=== PATIENT | female | born 1970 | race Caucasian/White ===

== ENCOUNTER 2018-04-12 18:13 | Outpatient (REF) | payer MEDICAID, SELFPAY ==
[2018-04-12 18:54] LABS: Anion Gap 9.9 mmol/L (3-11); BUN 15 mg/dL (7-18); CO2 25.1 mmol/L (21.0-32.0); CREATININE 0.84 mg/dL (0.55-1.02); Calcium 8.5 mg/dL (8.5-10.1); Chloride 101 mmol/L (98-107); Cholesterol 170 mg/dL (50-200); Glucose 219 mg/dL (70-100); HDL Cholesterol 49 mg/dL (40-60); LDL CHOLESTEROL 91 mg/dL (<100); Potassium 3.8 mmol/L (3.5-5.1); Sodium 136 mmol/L (136-145); Triglyceride 205 mg/dL (30-150)
[2018-04-12 18:56] LABS: COMMENT (LAB VIEW ONLY) 123.36 mg/dL; Microalb ug/mg Crea 9.9 ug/mg Cr
== END 2018-04-12 18:33 ==
LOC: LBN 18:13
PROVIDERS: PCP Internal Medicine; Referring Provider Internal Medicine; Visit Provider Internal Medicine
DX: E11.9 Type 2 diabetes mellitus without complications (principal)
CPT/HCPCS: 80048; 80061; 83721; 82043; 82570

== ENCOUNTER 2020-01-18 02:48 | Outpatient (CLI) | payer OTHER, SELFPAY ==
[2020-01-18 09:24] LABS: COMMENT (LAB VIEW ONLY) 240.62 mg/dL; Microalb ug/mg Crea 8.7 ug/mg Cr
[2020-01-18 09:27] LABS: Anion Gap 9.6 mmol/L (3-11); BUN 13 mg/dL (7-18); CO2 27.4 mmol/L (21.0-32.0); CREATININE 0.92 mg/dL (0.55-1.02); Calcium 9.5 mg/dL (8.5-10.1); Calculated LDL 115 mg/dL (<100); Chloride 102 mmol/L (98-107); Cholesterol 195 mg/dL (<200); Glucose 171 mg/dL (74-106); HDL Cholesterol 56 mg/dL (40-60); Potassium 5.1 mmol/L (3.5-5.1); Sodium 139 mmol/L (136-145); Triglyceride 122 mg/dL (<150)
== END 2020-01-18 03:08 ==
PROVIDERS: PCP Internal Medicine; Visit Provider Internal Medicine
DX: E11.9 Type 2 diabetes mellitus without complications (principal)
CPT/HCPCS: 36415; 80048; 80061; 82043; 82570

== ENCOUNTER 2023-01-04 01:51 | Outpatient (CLI) | payer OTHER, SELFPAY ==
--- NOTE | 2023-01-04 07:15 | DI.NM_ITS ---
APPROVED REPORT Exam: Pharmacologic Patient Location: Out-Patient Room/Bed: Stress Nurse: Effie Goldman RN Ordering Provider:RAFAEL ARNOLSKYLER, Contact Number: [phone] BMI: 27.86 Baseline Rhythm: Sinus Rhythm, LBBB Indications: CP on exertion Medical History Medical History: T2DM, Tachycardia, LBBB, HLD, Anxiety Cardiac Medications: Rosuvastatin, pantoprazole, metformin Allergies: NKA Cardiac Risk Factors: Family Hx, DM, HLD Previous Cardiac Procedures: None Pretest Chest Pain Characteristics: None Exercise History: Sedentary Physical Disabilities: None Lung Sounds: Clear to auscultation Heart Sounds: Regular Stress Test Details Test: Pharmacologic stress was paired with low level exercise. Nuclear Acquisition: Stress Tc-99m/Stress Tc-99m 1 day Rest Isotope: Tc-99m Sestamibi. Dose: 10 Date: 01/04/2023 Injection Time: 0910 Stress Isotope: Tc-99m Sestamibi. Dose: 31 Date: 01/04/2023 Injection Time: 1053 HR Resting HR Supine: 97 bpm Max Heart Rate (APMHR): 168.177660 bpm Resting HR Standin bpm Target HR (85% APMHR): 142.356391 bpm Max HR Achieved: 158 bpm % of APMHR: 94.05 Recovery HR: 118 bpm BP Resting BP Supine: 142/82 mmHg Resting BP Standin/72 mmHg Max BP: 138/78 mmHg Recovery BP: 138/78 mmHg ECG Resting ECG: Sinus Rhythm, LBBB Ectopy: None Stress ECG: Sinus Tachycardia, LBBB ST Change: No significant ST segment changes noted Arrhythmia: None Recovery ECG: LBBB, Sinus Tachycardia Recovery ST Change: No significant ST segment changes noted Recovery Arrhythmia: None Clinical Rate Pressure Product: [id number] Stress ECG Conclusion 1. Resting electrocardiogram showed a left bundle branch block 2. Patient underwent testing using a combination of low-level exercise and pharmacologic stress with regadenoson. 3. Peak heart rate achieved was 94% of predicted for age 4. The electrocardiographic portion of the test was nondiagnostic due to LBBB 5. See MPI report Stress Test Summary STAGE HR BP SpO2 Symptoms NOTES Supine 97 142/82 98 Standing 99 134/72 99 1 min post Lexiscan injection 141 128/62 98 SOB 3 min post Lexiscan injection 132 132/68 99 SOB/ Chest tightness 4/10 6 min post Lexiscan injection 118 138/78 98 SOb and chest tightness resolved Pharmacologic test was paired with low level exercise due to LBBB. Exercise at 1.2MPH 0% grade comple se for 2 minutes prior to injection and 1 minute post injection. Patient had SOB and chest tightness that resolved before end of test. MPI Conclusion Myocardial perfusion is abnormal. There is a moderate sized partially reversible anteroapical defect consistent with ischemia, possibly some degree of infarction EF 34% with anteroapical hypokinesis Radiologist Interpretation Radiologist agrees with Final Canoe Inspector's Interpretation. Radiologist Interpretation by: Fred Corrales MD Interpretation Date/Time: 01/05/2023 15:34:38
[2023-01-04] MEDS: Regadenoson 0.4 MG/5 ML SYR IVP (10:33)
== END 2023-01-04 02:11 ==
PROVIDERS: PCP Nurse Practitioner Family; Visit Provider Nurse Practitioner Family
DX: R07.9 Chest pain, unspecified (principal)
CPT/HCPCS: 78452; 93017; J2785

== ENCOUNTER 2023-01-07 16:49 | Outpatient (REF) | payer OTHER, SELFPAY ==
[2023-01-07 19:43] LABS: ALT 24 U/L (14-59); AST 18 U/L (15-37); Albumin 4.3 g/dL (3.4-5.0); Alkaline Phosphatase 50 U/L (46-116); Anion Gap 12.2 mmol/L (3-11); BUN 34 mg/dL (7-18); Bilirubin, Total 0.5 mg/dL (0.2-1.0); CO2 24.8 mmol/L (21.0-32.0); CREATININE 1.9 mg/dL (0.55-1.02); Calcium 9.2 mg/dL (8.5-10.1); Calculated LDL 41 mg/dL (<100); Chloride 103 mmol/L (98-107); Cholesterol 111 mg/dL (<200); Estimated GFR 31.38 (mL/min/1.73m2); Glucose 113 mg/dL (74-106); HDL Cholesterol 53 mg/dL (40-60); Potassium 4.5 mmol/L (3.5-5.1); Sodium 140 mmol/L (136-145); TSH (W/Ref FT4) 1.74 uIU/mL (0.36-3.74); Total Protein 7.7 g/dL (6.4-8.2); Triglyceride 85 mg/dL (<150)
== END 2023-01-07 16:50 | disposition home or self-care (01) ==
LOC: LBN 16:49
PROVIDERS: PCP Nurse Practitioner Family; Visit Provider Nurse Practitioner Family
DX: E11.9 Type 2 diabetes mellitus without complications (principal); E78.5 Hyperlipidemia, unspecified; F41.1 Generalized anxiety disorder
CPT/HCPCS: 80053; 80061; 84443

== ENCOUNTER 2023-01-13 14:19 | Outpatient (CLI) | payer OTHER, SELFPAY ==
--- NOTE | 2023-01-13 13:45 | DI.RAD_ITS ---
Exam(s) XR HAND RT COMPLETE EXAM: XR HAND RT COMPLETE CLINICAL HISTORY: pain. TECHNIQUE: 2D digital imaging was performed of the right hand. Three images were obtained. AP, late ral and oblique views were obtained. COMPARISON: No exams were available for comparison FINDINGS: BONES: No acute fracture is present. No bony destructive lesion is seen. JOINTS: No dislocation present. The joint spaces are well maintained. SOFT TISSUE: Normal. IMPRESSION: Unremarkable radiographs of the right hand. DATA REPOSITORY: RADIATION DOSE DELIVERED:
--- NOTE | 2023-01-13 13:45 | DI.RAD_ITS ---
Exam(s) XR HAND LT COMPLETE EXAM: XR HAND LT COMPLETE CLINICAL HISTORY: pain. TECHNIQUE: 2D digital imaging was performed of the left hand. Three views were obtained. AP, later al and oblique views were obtained. COMPARISON: No exams were available for comparison FINDINGS: BONES: No acute fracture is present. No bony destructive lesion is seen. JOINTS: No dislocation present. SOFT TISSUE: Normal. IMPRESSION: Unremarkable radiographs of the left hand. DATA REPOSITORY: RADIATION DOSE DELIVERED:
== END 2023-01-13 14:20 | disposition home or self-care (01) ==
LOC: DIORS 14:19
PROVIDERS: PCP Nurse Practitioner Family; Referring Provider Nurse Practitioner Family; Visit Provider Physician Assistant
DX: M79.641 Pain in right hand (principal); M79.642 Pain in left hand
CPT/HCPCS: 73130

== ENCOUNTER 2023-12-22 10:23 | Outpatient (REF) | payer OTHER, SELFPAY ==
[2023-12-22 12:43] LABS: Bilirubin Negative (Negative); Blood Negative (Negative); Clarity Cloudy (Clear); Glucose Negative (Negative); Ketones Trace mg/dL (Negative); Leukocyte Esterase Trace (Negative); Nitrite Negative (Negative); Specific Gravity >= 1.030 (1.005-1.025); Urobilinogen 0.2 mg/dL (Up to 0.2)
[2023-12-22 15:17] LABS: Bacteria Moderate HPF (Negative); C & S Indicated? Yes; Casts Negative LPF (Negative); Crystals Few Calcium Oxalate HPF (Negative); Epithelial Cells Few HPF (Negative); Mucus Trace (Negative); Other Cells Rare Renal (Negative); RBC 0-2 HPF (0-2)
== END 2023-12-22 10:24 | disposition home or self-care (01) ==
LOC: LBN 10:23
PROVIDERS: PCP Nurse Practitioner Family; Visit Provider Nurse Practitioner Family
DX: Z00.00 Encounter for general adult medical examination without abnormal findings (principal); B96.89 Other specified bacterial agents as the cause of diseases classified elsewhere
CPT/HCPCS: 81003; 81015; 82043; 82570; 87086

== ENCOUNTER → 2024-01-05 00:13 | Outpatient (CLI) | payer OTHER, SELFPAY ==
--- NOTE | 2024-01-05 07:00 | DI.MAMMO_ITS ---
Exam(s) MAMMO SCREENING EXAM: MAMMO SCREENING CLINICAL HISTORY: screening, Z12.39. TECHNIQUE: Bilateral full field digital CC and MLO mammographic images were obtained with 3D tomosyn thesis and utilizing computer aided detection (CAD). COMPARISON: Prior outside mammograms were reviewed. FINDINGS: There are no new spiculated masses. No new left breast findings. In the posterior aspect of the right breast on the CC view there is a small group of benign-appearing microcalcifications which appears stable. However, immediately posterior to this group is another n ew group of microcalcifications which require spot Mag view (2D). No obvious mass at this level. There is no significant architectural distortion nor skin thickening-retraction. IMPRESSION: 1. No radiographic evidence of malignancy in left breast. 2. Right breast microcalcification group located posteriorly. Spot Mag 2D view recommended BI-RADS Category 0 - Assessment Incomplete: Need additional imaging evaluation Breast Density - Category B - Scattered areas of fibroglandular density Breast density Category C or D implies that the patient has dense breast tissue. Dense breast tissue can make it harder to find cancer on a mammogram. Dense breast tissue is also associated with an incr eased risk of breast cancer. This information about the result of the mammogram report was provided to the patient to raise their awareness. Use this report when you speak with the patient about their risks for breast cancer, which includes their family history. At that time, you may recommend additional screening tests (Ultrasoun d or MRI) as these tests may add significant information. A negative radiographic report should not delay biopsy if a dominant or clinically suspicious mass is present. Up to ten percent of cancers are not identified on mammography. A negative report may reinforce clinical impression. Adenosis and dense breasts may obscure an underlying neoplasm. False positive reports average 6 to 10%. Patient will receive a letter notifying them of these results.
== END ==
PROVIDERS: PCP Nurse Practitioner Family; Visit Provider Nurse Practitioner Family
DX: Z12.31 Encounter for screening mammogram for malignant neoplasm of breast (principal); R92.8 Other abnormal and inconclusive findings on diagnostic imaging of breast
CPT/HCPCS: 77063; 77067

== ENCOUNTER → 2024-01-12 03:22 | Outpatient (CLI) | payer OTHER, SELFPAY ==
--- NOTE | 2024-01-12 | DI.MAMMO_ITS ---
Exam(s) MG MAMMO SCREEN CALL BACK UNI EXAM: MG MAMMO SCREEN CALL BACK UNI INDICATION: RT BREAST MICROCALCIFICATION GROUP LOCATED POSTERIOLY R92.8 ABNL MAMMO. COMPARISON: MG MG MAMMOGRAPHY BILATERAL SCREENING from 10/02/2013 MG MG MAMMOGRAPHY BILATERAL SCREENING from 08/22/2018 MG MG MAMMOGRAPHY BILATERAL SCREENING from 08/24/2019 MG MG MAMMOGRAPHY BILATERAL SCREENING from 08/22/2021 MG MG MAMMO SCREENING from 01/05/2024 TECHNIQUE: Spot magnification cc and MLO views were performed of the posterior upper outer quadrant of the right breast.. FINDINGS: A grouping of calcifications is again noted in the posterior upper outer quadrant. The calcification s appear unchanged from 2021 appear new when compared with 2019. no definite suspicious features. IMPRESSION: BI-RADS Cat 3 - 6 month - Probably Benign Finding: Recommend follow-up imaging in 6 months Breast Density - Category B - Scattered areas of fibroglandular density
--- NOTE | 2024-01-12 09:15 | DI.MRI_ITS ---
Exam(s) MR UPPER JOINT LT WO EXAM: MR UPPER JOINT LT WO CLINICAL HISTORY: left shoulder pain x 1 yr with limited ROM, CHRONIC PAIN, M25.512, G89.29. TECHNIQUE: Multiplanar multisequence MRI was performed. COMPARISON: Exam interpreted without benefit of comparison plain films. FINDINGS: BONES: There is no fracture or contusion pattern. JOINTS:The acromioclavicular joint shows minimal degenerative changes. The glenohumeral joint is nor mal. TENDONS: Supraspinatus: Thickening and intermediate signal in the anterior supraspinatus tendon, consistent wi th tendinosis. No visible focal tear. Infraspinatus: Unremarkable. Subscapularis: Unremarkable. Teres Minor: Unremarkable. Biceps and [place]: The abnormally edema in the proximal biceps tendon. Distal biceps tendon normally positioned in groove. MUSCLES: Unremarkable. GLENOID LABRUM: Unremarkable on this noncontrast examination. SOFT TISSUES: Unremarkable. OTHER: Subacromial and subdeltoid bursae shows no fluid. . IMPRESSION: Tendinosis of the proximal long head of biceps tendon as well as supraspinatus tendon. No focal tear is are visible. DATA REPOSITORY:
== END ==
PROVIDERS: PCP Nurse Practitioner Family; Visit Provider Nurse Practitioner Family
DX: M19.012 Primary osteoarthritis, left shoulder (principal); Z12.31 Encounter for screening mammogram for malignant neoplasm of breast; R92.8 Other abnormal and inconclusive findings on diagnostic imaging of breast
CPT/HCPCS: 77063; 77067; 73221

== ENCOUNTER 2024-01-12 09:58 | Outpatient (CLI) | payer OTHER, SELFPAY ==
[2024-01-12 10:23] LABS: Abs Immature Grans 0.02 10^3/uL (0.0-0.06); Absolute Basophil Count 0.08 10^3/uL (0.0-0.2); Absolute Eosinophil Count 0.54 10^3/uL (0.0-0.7); Absolute Lymphocyte Count 2.16 10^3/uL (1.2-3.4); Absolute Monocyte Count 0.53 10^3/uL (0.1-0.8); Absolute Neutrophil Count 4.02 10^3/uL (1.2-6.7); Basophils % 1.1 %; Eosinophils % 7.3 %; HCT 32.3 % (36.0-46.0); HGB 10.8 g/dL (11.2-15.7); Immature Grans % 0.3 %; Lymphocytes % 29.4 %; MCH 29.8 pg (27.0-33.0); MCHC 33.4 % (32.0-36.0); MCV 89 fL (80-95); MPV 11.2 fL (8.0-11.0); Monocytes % 7.2 %; Neutrophils % 54.7 %; Platelet Count 316 10^3/uL (130-400); RBC 3.63 10^6/uL (3.93-5.22); RDW 12.6 % (11.7-14.6); RDW-SD 41.1 fL; WBC 7.35 10^3/uL (4.4-10.8)
[2024-01-12 11:39] LABS: ALT 37 U/L (14-59); AST 18 U/L (15-37); Albumin 4.1 g/dL (3.4-5.0); Alkaline Phosphatase 36 U/L (46-116); Anion Gap 9.5 mmol/L (3-11); BUN 26 mg/dL (7-18); Bilirubin, Total 0.5 mg/dL (0.2-1.0); CO2 28.5 mmol/L (21.0-32.0); CREATININE 1.3 mg/dL (0.55-1.02); Calcium 9.7 mg/dL (8.5-10.1); Chloride 105 mmol/L (98-107); Estimated GFR 49.17 (mL/min/1.73m2); Glucose 117 mg/dL (74-106); Potassium 4.4 mmol/L (3.5-5.1); Sodium 143 mmol/L (136-145); TSH (W/Ref FT4) 1.67 uIU/mL (0.36-3.74); Total Protein 7.1 g/dL (6.4-8.2)
[2024-01-12 18:04] LABS: FSH 100.5 mIU/mL (See Note)
[2024-01-13 09:42] LABS: Lab Add On Test DONE
[2024-01-13 10:04] LABS: HIV-1/2 Ag & Ab Screen Negative (Negative)
[2024-01-13 10:32] LABS: Ferritin 68 ng/mL (8-252); Vitamin B12 1825 pg/mL (193-986)
[2024-01-13 23:57] LABS: Folate >24.0 ng/mL (See Note)
[2024-01-14 09:20] LABS: Hepatitis C Ab w Rflx HCV PCR Negative (Negative)
[2024-01-14 09:32] LABS: HBs Antibody, Quant <3.1 mIU/mL (See Note); Hep B Surface Ab Negative (See Note); Hepatitis B Core Antibody Negative (Negative); Hepatitis B Surface Antigen Negative (Negative)
== END 2024-01-12 09:59 | disposition home or self-care (01) ==
LOC: LBO 09:58
PROVIDERS: PCP Nurse Practitioner Family; Visit Provider Nurse Practitioner Family
DX: Z00.00 Encounter for general adult medical examination without abnormal findings (principal); D64.9 Anemia, unspecified
CPT/HCPCS: 36415; 80053; 86704; 86706; 86803; 87340; 87389; 82607; 82728; 82746; 83001; 84443; 85025

== ENCOUNTER 2024-08-02 02:23 | Outpatient (CLI) | payer OTHER, SELFPAY ==
--- NOTE | 2024-08-02 08:00 | DI.MAMMO_ITS ---
Exam(s) MAMMO DIAGNOSTIC UNI EXAM: MAMMO DIAGNOSTIC UNI CLINICAL HISTORY: 6 month f/U RT BREAST CALCIFICATIONS, R92.8,Z09. TECHNIQUE: Craniocaudal and mediolateral oblique Full Field Digital Mammography views of the right b reast with Computer Aided Diagnosis followed by Tomosynthesis. COMPARISON: Comparison is made with prior examinations. FINDINGS: Mammography/Tomosynthesis: Masses/Architectural Distortion: No suspicious masses or areas of architectural distortion are presen t. Microcalcifictions: No suspicious pleomorphic-type are seen. The calcifications in the upper outer qu adrant of the right breast are stable. The show no significant change since 2021. Skin Thickening/Nipple Retraction: None. IMPRESSION: 1. No evidence of malignancy is noted. 2. Unless there is more urgent need, follow-up screening mammography is recommended, as per [place] [employer] guidelines. 3. The findings were discussed with the patient on the date of the examination. BI-RADS Category 2 - Benign Findings Breast Density - Category B - Scattered areas of fibroglandular density Breast density Category C or D implies that the patient has dense breast tissue. Dense breast tissue can make it harder to find cancer on a mammogram. Dense breast tissue is also associated with an incr eased risk of breast cancer. This information about the result of the mammogram report was provided to the patient to raise their awareness. Use this report when you speak with the patient about their risks for breast cancer, which includes their family history. At that time, you may recommend additional screening tests (Ultrasoun d or MRI) as these tests may add significant information. A negative radiographic report should not delay biopsy if a dominant or clinically suspicious mass is present. Up to ten percent of cancers are not identified on mammography. A negative report may reinforce clinical impression. Adenosis and dense breasts may obscure an underlying neoplasm. False positive reports average 6 to 10%. Patient will receive a letter notifying them of these results.
== END 2024-08-02 02:43 ==
PROVIDERS: PCP Nurse Practitioner Family; Visit Provider Nurse Practitioner Family
DX: Z09 Encounter for follow-up examination after completed treatment for conditions other than malignant neoplasm (principal); R92.8 Other abnormal and inconclusive findings on diagnostic imaging of breast
CPT/HCPCS: 77061; 77065; G0279